=== PATIENT | male | born 1960 | race Two or more races ===

== ENCOUNTER 2018-08-16 11:39 | Inpatient (IN) | payer OTHER ==
[~2018-08-16] VITALS: Ht 175.3 cm; Wt 75.7 kg
[2018-08-16] MEDS ORDERED: TOPROL XL100 MG PO (11:51)
[2018-08-16] MEDS ORDERED: AMLODIPINE-OLM1 EAC1 PO (11:52)
[2018-08-16] MEDS ORDERED: CARDURA1 MG PO (11:52)
--- NOTE | 2018-08-16 12:02 | NUR ---
SE RECIBE PTE ALERTA Y ORIENTADO EN 3 ESFERAS. PACIENTE REFIERE DOLOR Y DEBILIDAD EN TODO EL CUERPO DESDE HACE VARIOS CONNOLLY.
--- NOTE | 2018-08-16 13:00 | NUR ---
1PM SE RECIBE PACIENTE EN ALEX DEL AREA DE OBSERVACION ACOMPANADO DE FAMILIAR Y Y SE ACOMDA EN ALEX #16 AREA DE CHST PAIN POR ORDEN DE LA DRA. VERDIN ,SE CANALIZA EN BRAZO DERECHO CON ANGIO #18 BAJANDO 0.9nSS A 175ML/HR SE CONECTA A MONITOR CARDIACO. SE [place] S/V PRESENTANDO 150/69 HR 128 FIO2 51% RESPIRACIONES RAPIDAS Y ABDOMINALES , SE NOTIFICA A DR. VERDIN Y POR ORDEN VERBAL COLOCARLE NON REBREATHING 100% PACIENTE CONTINUA CON DISTRESS RESPIRATORIO Y NOTIFICAN A ENFERMERA ANESTESIA. 1:05 ORDENA ENTUBAR Y SE COMIENZA EL PROCESO SE LE ADMINTRA VERSED 2MG IV SE MANTIENE ENOBSERVACION SE MANTIENE VENTILANDO APCIENTE AL 100% 1:08PM SE ADMINITRA MEDICAMENTO DE PROPOFOL 5ML IVP POR MISS. [place] CON S/V 100/72 89% HR 125 PACIENTE SE OBSERVA ACTIVO . 1:13PM SE LE ADMINITRA 5ML IVP DE PROPOFOL Y 2ML DE ANESTIN IV PACIENTE S MANTIENEN SEDADO Y SE COMINEZA EL PROCESO DE ENTUBACION ENDOTRAQUEL POR . ENFERMERA ANESTESITA CON TUBO #7.5 CM Y FIJADO EN #23 CONECTADO A V/MEC CON PARAMETROS SEGU ORDEN MEDICA , VT 500,R14,PEEP5 FIO2 100% S/V 115/67 84% HR 127 . SE OBSERVA COMBATIVO SE RESTRINGE PACIENTE AMBAS EXTREMIDADES Y RECIBE SUCCION ENDOTRAQUEAL OBTENEINDO ABUNDANTES SECRESIONES , SE LE COLOCA BOLSAS DE HIELO POR TEMOPERATURA DE 102.0 SE TULIO EN OSBERVACION PO RCAMBIOS EN TOLEDO CONDCIOBN. MUESTARS DE CULTTIVO DE KARLA TOMADAS Y MEDICMANETOS ADMINITRADOS. PACIENTE SE MANTIENE SEDADO Y SE COMIENZA EL PROCESO DE ENTUBACION
== END 2018-09-05 14:14 | disposition home or self-care (01) | DRG 951 ==
LOC: ER 11:39 → ICU 13:09 → ICU-2 13:09 → ICUI 08-17 03:46 → ICU 08-17 03:47 → MEDJ 09-02 20:18
PROVIDERS: ADMIT Internal Medicine
PROC: 0BH17EZ Insertion of Endotracheal Airway into Trachea, Via Natural or Artificial Opening (ICD-10-PCS; principal; 2018-08-16)
PROC: 5A1955Z Respiratory Ventilation, Greater than 96 Consecutive Hours (ICD-10-PCS; 2018-08-16)
PROC: 8E0ZXY6 Isolation (ICD-10-PCS; 2018-08-16)
PROC: 3E0F7GC Introduction of Other Therapeutic Substance into Respiratory Tract, Via Natural or Artificial Opening (ICD-10-PCS; 2018-08-16)
PROC: 4A033R1 Measurement of Arterial Saturation, Peripheral, Percutaneous Approach (ICD-10-PCS; 2018-08-16)
PROC: 0DH67UZ Insertion of Feeding Device into Stomach, Via Natural or Artificial Opening (ICD-10-PCS; 2018-08-19)
PROC: 3E0G76Z Introduction of Nutritional Substance into Upper GI, Via Natural or Artificial Opening (ICD-10-PCS; 2018-08-19)
PROC: BT43ZZZ Ultrasonography of Bilateral Kidneys (ICD-10-PCS; 2018-08-21)
PROC: B54PZZZ Ultrasonography of Bilateral Upper Extremity Veins (ICD-10-PCS; 2018-08-23)
PROC: 06HY33Z Insertion of Infusion Device into Lower Vein, Percutaneous Approach (ICD-10-PCS; 2018-08-24)
PROC: 4A12X4Z Monitoring of Cardiac Electrical Activity, External Approach (ICD-10-PCS; 2018-09-02)
DX: J95.850 Mechanical complication of respirator (principal); J16.8 Pneumonia due to other specified infectious organisms; A41.1 Sepsis due to other specified staphylococcus; R65.21 Severe sepsis with septic shock; J96.00 Acute respiratory failure, unspecified whether with hypoxia or hypercapnia; N17.8 Other acute kidney failure; I82.622 Acute embolism and thrombosis of deep veins of left upper extremity; I13.10 Hypertensive heart and chronic kidney disease without heart failure, with stage 1 through stage 4 chronic kidney disease, or unspecified chronic kidney disease; N18.3 Chronic kidney disease, stage 3 (moderate); J09.X2 Influenza due to identified novel influenza A virus with other respiratory manifestations

== ENCOUNTER 2018-09-16 08:33 | Outpatient (CLI) | payer OTHER ==
[~2018-09-16 08:33] MED LIST: AMLODIPINE-OLM1 EAC1 PO; CARDURA1 MG PO; TOPROL XL100 MG PO
== END 2018-09-16 08:53 | disposition home or self-care (01) ==
LOC: LAB 08:33
DX: I10 Essential (primary) hypertension (principal); I70.0 Atherosclerosis of aorta; E78.2 Mixed hyperlipidemia

== ENCOUNTER 2018-09-19 13:13 | Outpatient (CLI) | payer OTHER | END 2018-09-19 14:00 | disposition home or self-care (01) | LOC: NUCLEAR 13:13 | DX: I50.20 Unspecified systolic (congestive) heart failure (principal) ==

== ENCOUNTER → 2018-10-09 | Outpatient (CLI) | payer OTHER | END | disposition home or self-care (01) | LOC: NUCLEAR 08:58 | DX: I82.622 Acute embolism and thrombosis of deep veins of left upper extremity (principal) ==